=== PATIENT | female | born 1975 | race Caucasian/White ===

== ENCOUNTER → 2017-04-03 | Outpatient (CLI) | payer BC, OTHER ==
[~2017-04-03] MED LIST: ALLERGY10 M1 PO; CHANTIX1 EACH PO; CRESTOR20 MG PO; CYMBALTA60 MG PO; EFFEXOR XR75 MG PO; ERGOCALCIF50000 UNIT PO; FLEXERIL PO; HYDROCODONE-AP1 EAC6 PO; IBUPROFEN 600600 M1 PO; LYRICA 75 MG CA75 MG PO; NORCO 5-325 TA1 EACH PO; RELISTOR150 MG PO; VENLAFAXINE HC225 MG PO; XANAX 0.5 MG0.5 M1 PO
== END ==
LOC: MRI 03-10 11:19 → EDSTATUS 03-10 11:19 → MRI 03-10 13:08
DX: M54.16 Radiculopathy, lumbar region (principal); M47.896 Other spondylosis, lumbar region; M51.37 Other intervertebral disc degeneration, lumbosacral region

== ENCOUNTER → 2017-04-09 | Outpatient (CLI) | payer BC, OTHER ==
[~2017-04-09] VITALS: Ht 152.4 cm; Wt 77.2 kg
--- NOTE | ~2017-04-09 | HPC ---
[facility] [address] [place] [address] PAIN MANAGEMENT CONSULTATION Name: BA CARTER Room #: REG GISELA Choi.#: [id number] Admission: 04/09/17 Attend Phys: Geo Peters DO Discharge: Date of : 75 Report #: [id number] THIS REPORT FOR: //name// CC: Brenda Peters The patient is a 41-year-old female, seen in consultation 02/19/2017, for symptomatic lumbar radiculopathy, requiring high risk complex medication management. The patient presented to our pain clinic noting she had multiple epidural injections (6 or [address] Armendariz), all with transient improvement of symptoms. Last injection had been in January 2017. She presented to our pain clinic for medication management and discussion about ongoing therapeutic options. I continued the patient on hydrocodone 5/325 up to 4 times a day, talked about neurosurgical consultation for possible definitive surgical intervention. Spinal cord stimulator if no surgery was indicated. Ultimately pointed out that we would want to wean off of short-acting opiates for chronic pain with no definitive etiology in this 41-year-old female. The patient returns to pain clinic today noting the pain continues to be problematic, she rates the pain a 6 on a VAS, primarily pain in the low back, left buttock and leg. She states left leg goes numb at least once a day. She denies myelopathic symptoms, no saddle anesthesia nor bowel or bladder continence changes. She has been taking hydrocodone 4 a day. She has an appointment to see her neurosurgeon (Dr. Edward Randall 04/24/2017). We repeated her MRI given ongoing symptoms. I reviewed the 04/03/2017 imaging, L5-S1 does show a very minimal asymmetric left broad-based disk bulge, it does not cause central nor neural foraminal narrowing. L4-L5 shows slight ligamentum flavum hypertrophy with mild to moderate bilateral facet degenerative changes. There is some facet degenerative changes at L3-L4 as well. PHYSICAL EXAMINATION: Again, shows a 41-year-old female, BMI is 33.2 kg/m2. Subjective pain score 6 on a VAS. Blood pressure 114/75, pulse 85, and respirations 16. Rises from chair using armrest. Gait is tandem. She can walk on her toes and heels. Lumbar flexion is good to about 80 degrees. Diffuse low back tenderness. No discrete trigger points are noted. Lower extremity strength is symmetric at 4/5 to all muscle groups tested. Patellar and Achilles reflexes are preserved. Straight leg raise negative. ASSESSMENT: 1. Symptomatic lumbar radiculopathy with clinical exam and history, the patient with nominal findings at this time, relatively unremarkable MRI. Subjective paresthesia and pain in the low back and left leg. 2. Symptomatic lumbar radiculopathy, neuropathic pain requiring high complex medication management. [address] [address] PAIN MANAGEMENT CONSULTATION Name: BA CARTER Room #: REG GISELA Walker#: [id number] Admission: 04/09/17 Attend Phys: Geo Peters DO Discharge: Date of : 75 Report #: [id number] RECOMMENDATION: 1. Discussed therapeutic options with the patient today. We did get a buccal drug swab today. It should be positive for hydrocodone alone as the sole opiate. I talked about weaning opiates over time. We have elected to decrease hydrocodone 5/325 from 4 a day down to 2-3 a day. Increase ibuprofen 600 mg from 2 a day to 4 a day (at least one 3 times a day with meals plus minus bedtime ibuprofen if needed). 2. Did encourage the patient to follow through with neurosurgical consult. Unless I see something different on the MRI, I suspect she may not be a surgical candidate. They may want to consider ordering EMG of the lower extremity to evaluate etiology of the patient's subjective paresthesia. She may have a lumbar plexopathy. 3. The patient was seen for a prolonged visit today, greater than 25 minutes was spent counseling the patient. We elected to start to wean hydrocodone as noted above, I did generate a prescription for hydrocodone 5/325, limit 75 tablets, directions one tablet 2-3 times a day. 4. Increase ibuprofen 600 mg to 3 a day with possible fourth at bedtime. 5. Follow up with neurosurgery as noted above. Follow up in 1 month to reevaluate the patient continue opiate wean and evaluate neurosurgical consult and possibly EMG results. <ELECTRONICALLY SIGNED> By: Geo Peters DO 04/10/17 0810 1213 1256 Geo Peters DO /nt
[2017-04-09 11:15] VITALS: BP 114/75
== END ==
LOC: PAIN 06:26
DX: M54.16 Radiculopathy, lumbar region (principal); Z79.899 Other long term (current) drug therapy

== ENCOUNTER → 2017-05-07 | Outpatient (CLI) | payer BC, OTHER ==
[~2017-05-07] VITALS: Ht 152.4 cm; Wt 77.7 kg
--- NOTE | ~2017-05-07 | HPC ---
[facility] [place] [address] PAIN MANAGEMENT CONSULTATION Name: CARTERBA Room #: REG [facility] MPrincess.#: [id number] Admission: 05/07/17 Attend Phys: Geo Peters DO Discharge: Date of : 75 Report #: [id number] THIS REPORT FOR: //name// CC: Brenda Peters The patient is a 41-year-old female, prior seen in pain clinic 04/09/2017, diagnosed with symptomatic lumbar radiculopathy by clinical exam and history. Relatively unremarkable MRI, but subjective paresthesia in the low back and left leg. We did get a buccal swab at that time, was positive for hydrocodone as expected. Also, positive for nicotine, the patient was counseled regarding nicotine use. Continued the patient on hydrocodone 5/325, trying to wean dose down from q.i.d. Continued ibuprofen 600 mg up to 4 a day. I referred the patient to Neurosurgery. The patient returns to pain clinic today. I had ordered an EMG. It is actually scheduled now for 05/22/2017. We reviewed x-rays of the hip Dr. Randall had ordered. By report, those were unremarkable. States that her left leg has given out when she was rising up from kneeling. PHYSICAL EXAMINATION: Otherwise shows 41-year-old female, BMI is 33.4 kilograms per meter squared. No history of arthritis. Vital signs are stable as noted in the EMR. The pain tends to be only 3 on VAS, however, paresthesia, numbness in that leg. She did fall in December. She feels like it "gives out," but she has not fallen in last 3 months. We reviewed her opiate consent to treat contract. Functional assessment tool score is 61/70. Again, counseled regarding smoking cessation. Moderately antalgic gait, though lower extremity strength is only nominally diminished. She has subjective paresthesia and weakness episodically in the left leg. ASSESSMENT: Symptomatic lumbar radiculopathy, clinical exam and history. MRI fairly unremarkable. RECOMMENDATION: EMG and Neurosurgery, we will continue hydrocodone 5/325, limit 50 tablets for 30 days. Continue ibuprofen 600 mg up to 4 times a day. Follow up after EMG and Neurosurgery. Consider epidural injection if indicated. Clinically, may consider transforaminal approach. Discharged in good and stable condition. <ELECTRONICALLY SIGNED> By: Geo Peters DO 05/11/17 0715 1144 1413 Geo Peters DO /nt
[2017-05-07 14:42] VITALS: BP 113/69
== END ==
LOC: PAIN 06:54
DX: M54.16 Radiculopathy, lumbar region (principal)

== ENCOUNTER → 2017-06-05 | Outpatient (CLI) | payer BC, OTHER ==
[~2017-06-05] VITALS: Ht 152.4 cm; Wt 78.0 kg
[~2017-06-05] MED LIST changes: -CHANTIX1 EACH PO; -CYMBALTA60 MG PO; -EFFEXOR XR75 MG PO; -ERGOCALCIF50000 UNIT PO; -NORCO 5-325 TA1 EACH PO
--- NOTE | ~2017-06-05 | HPC ---
[facility] [place] [address] PAIN MANAGEMENT CONSULTATION Name: CARTERBA Room #: REG GISELA Choi.#: [id number] Admission: 06/05/17 Attend Phys: Geo Peters DO Discharge: Date of : 75 Report #: [id number] THIS REPORT FOR: //name// CC: Brenda Peters DATE OF SERVICE: 06/05/2017 The patient is a 41-year-old female, prior seen in the Pain Clinic 05/07/2017. MRI had been accomplished 04/03/2017. It did show L5-S1 to have a fairly broad base asymmetric to the left disk bulging with slight ligamentum flavum hypertrophy at L4-L5 with little facet degenerative changes at L3-L4. With ongoing lumbar radicular pain, paresthesia in the back and left leg, we recommended an EMG. Unfortunately, EMG was obtained, but I do not have the results. By verbal report, patient states that it did show some chronic left L5 compromise. This would go along with the mild MRI findings and left hip and groin pain. She did see [facility] Neurosurgery. She does have a followup appointment with her to see Orthopedics to evaluate for any left hip pathology. The patient currently notes pain is a 6 on a VAS. Pain is aching, sharp, with some numbness and tingling in the leg, exacerbated with standing or sitting too long or doing any exercise. PHYSICAL EXAMINATION: Shows a 41-year-old female, BMI is 33.6 kg/m2, blood pressure 118/86, pulse 84, respirations are 16. Rises from chair using armrest, slightly antalgic gait. Patellar and Achilles reflexes are preserved at 2/4. Trace positive straight leg raise on the left. Lower extremity strength, however, is generally symmetric about 4/5 with the exception that she has slight decreased left lower extremity flexion strength. Skin: Integument is intact. Random drug screen accomplished 04/09/2017 was positive for prescribed medications. ASSESSMENT: Lumbar radiculopathy, possible component of left hip degenerative joint disease, requiring complex medication management. RECOMMENDATION: Ultimately, we elected to continue hydrocodone . I have taken the liberty of writing for 50 tablets. Follow up after Orthopedics. We may consider epidural injection under fluoroscopy or referral back to [address] [address] PAIN MANAGEMENT CONSULTATION Name: BA CARTER Room #: REG CLJono Walker#: [id number] Admission: 06/05/17 Attend Phys: Geo Peters DO Discharge: Date of : 75 Report #: [id number] Neurosurgery for further evaluation. We will plan on weaning opiates as able. Discharged in good and stable condition. <ELECTRONICALLY SIGNED> By: Geo Peters DO 06/08/17 0925 1227 Geo Peters DO /nt
[2017-06-05 11:10] VITALS: BP 118/86
== END ==
LOC: PAIN 07:00
DX: M54.16 Radiculopathy, lumbar region (principal); Z79.899 Other long term (current) drug therapy

== ENCOUNTER → 2017-07-06 | Outpatient (CLI) | payer BC, OTHER ==
[~2017-07-06] VITALS: Ht 152.4 cm; Wt 80.3 kg
[~2017-07-06] MED LIST changes: +EFFEXOR XR75 MG PO
--- NOTE | ~2017-07-06 | HPC ---
[facility] [place] [address] PAIN MANAGEMENT CONSULTATION Name: CARTERBA Room #: REG GISELA MPrincess.#: [id number] Admission: 07/06/17 Attend Phys: Geo Peters DO Discharge: Date of : 75 Report #: [id number] THIS REPORT FOR: //name// CC: Brenda Peters DATE OF SERVICE: 07/06/2017 HISTORY OF PRESENT ILLNESS: The patient is a 41-year-old female being treated for left hip pain, lumbar radicular component. Last seen on 06/05/2017. We continued the patient on some low dose hydrocodone 5/325, I wrote for 50 tablets, referred to Orthopedics. She had prior been seen by Neurosurgery (Dr. Edward Randall). He felt that her primary pain with hip pathology. Apparently, x-rays have been fairly unremarkable. EMG did show some chronic left compromise. MRI does note asymmetric left-sided broad-based disk. She has an appointment to see Orthopedic Surgery early next month. In the interval, we have elected to continue hydrocodone 5/325 on a somewhat p.r.n. basis. Given the pain in the left lateral thigh and leg, exacerbated with standing and walking, associated with some numbness and tingling, I still feel there may be a component of left L5 radiculopathy. After she completes orthopedic workup (I believed she has seen Dr. Bazzi for diagnostic left hip joint injection), we would like to move forward with left L5-S1 transforaminal epidural injection to help with radicular component of pain. Discharged in good and stable condition with renewal of hydrocodone 5/325, dispensed 60 tablets, 1 or 2 a day. Random drug screen on 04/09/2017 was positive for prescribed medications. By: [id number] Geo Peters, /nt
[2017-07-06 14:34] VITALS: BP 118/79
== END ==
LOC: PAIN 07:25
DX: M54.16 Radiculopathy, lumbar region (principal); M25.552 Pain in left hip

== ENCOUNTER → 2017-08-17 | Outpatient (CLI) | payer BC, OTHER ==
[~2017-08-17] VITALS: Ht 152.4 cm; Wt 82.3 kg
[~2017-08-17] MED LIST changes: +CYMBALTA60 MG PO
--- NOTE | ~2017-08-17 | HPC ---
[facility] [place] [address] PAIN MANAGEMENT CONSULTATION Name: CARTERBA Room #: REG Jono MPrincess.#: [id number] Admission: 08/17/17 Attend Phys: Geo Peters DO Discharge: Date of : 75 Report #: [id number] THIS REPORT FOR: //name// CC: Brenda Peters The patient is a 41-year-old female, prior seen in the pain clinic 08/06/2017. She has symptomatic lumbar radiculopathy and left hip pain. She has been on Cymbalta 30 mg, recently increased to 60 mg by her general practitioner. This has afforded some efficacy. Lyrica 75 mg b.i.d. She has ongoing pain, low back, left buttock and hip and leg. Prior MRI had noted some compromise with facet degenerative changes. The patient did bring with her today the EMG, which had been accomplished, it did find a mild chronic left L5 radiculopathy. The patient has an appointment to see Dr. Bazzi on September 05, about 3 weeks from now to get a left flexor ultrasound-guided injection. She is very desirous of getting "to the bottom of the source of her pain" rather than simply mitigate symptoms. PHYSICAL EXAMINATION: Today does show a pleasant 41-year-old female. Subjective pain score is 5 on a VAS. BMI is 35.4 kg/m2. Blood pressure 110/70, pulse 86, and respirations are 14. Rises from chair using armrest, modestly antalgic gait. Lumbar flexion is limited to about 70 degrees. She is tender across the low back, primarily in the L5-S1 area. She does have some positive neuropathic symptoms with positive neural tensioning left. Straight leg raise does exacerbate some pain. Slight decreased left plantar flexion, little toe walk on her toes on the side. ASSESSMENT: chronic left L5 radiculopathy, possible component of left hip adductor muscle generated pain. RECOMMENDATIONS: 1. Discussion with the patient today about therapeutic option, we have elected to renew her Lyrica 75 mg b.i.d., dispense 60 tablets, 5 refills. 2. Lumbar epidural injection under fluoroscopy today, left of midline L5-S1. Follow up in 4 weeks for evaluation, this will be after her appointment with Dr. Bazzi for ultrasound-guided hip flexor injection (left flexor tendon injection). She is going to see Dr. Bazzi for an ultrasound-guided left flexor injection. PROCEDURE: Lumbar epidural injection under fluoroscopy. PROCEDURE NOTE: After both written and informed consent to include risk of spinal cord damage, increased pain, weakness and dural puncture, the patient was taken to the fluoroscopy suite, placed in the prone position. After sterile prep and drape, a skin wheal with lidocaine was raised. A 22-gauge epidural [address] [address] PAIN MANAGEMENT CONSULTATION Name: BA CARTER MANOHAR Room #: REG CLJono Walker#: [id number] Admission: 08/17/17 Attend Phys: Geo Peters DO Discharge: Date of : 75 Report #: [id number] Tuohy needle was inserted in the midline at L5-S1 with good loss to resistance. Negative aspiration for cerebrospinal fluid or blood was noted. Then 1 mL of Omnipaque under biplanar fluoroscopy showed good spread within the epidural space. This was followed with 80 mg of triamcinolone plus 1 mL of 1.5% preservative-free Xylocaine, 0.5 mL Xylocaine was then injected to flush the needle; it was removed. The patient was monitored for an appropriate period of time and discharged in good and stable condition. By: [id number] 1429 Geo Peters DO /nt
[2017-08-17 08:10] VITALS: BP 110/70
== END | disposition home or self-care (01) ==
LOC: PAIN 06:57
DX: M54.16 Radiculopathy, lumbar region (principal); G89.29 Other chronic pain; F17.210 Nicotine dependence, cigarettes, uncomplicated; Z88.8 Allergy status to other drugs, medicaments and biological substances; Z79.899 Other long term (current) drug therapy; Z79.891 Long term (current) use of opiate analgesic

== ENCOUNTER → 2017-09-21 | Outpatient (CLI) | payer BC, OTHER ==
[~2017-09-21] VITALS: Ht 157.5 cm; Wt 83.2 kg
--- NOTE | ~2017-09-21 | HPC ---
[facility] [place] [address] PAIN MANAGEMENT CONSULTATION Name: EMMABA Room #: REG Jono Choi.#: [id number] Admission: 09/21/17 Attend Phys: Geo Peters DO Discharge: Date of : 75 Report #: [id number] THIS REPORT FOR: //name// CC: Brenda Peters DATE OF SERVICE: 09/21/2017 The patient is a 41-year-old female being treated for lumbar radicular pain and left hip pain. She was seen today for prolonged visit, from 1429 to 1500. Greater than 50% of time was spent in counseling the patient. The patient was initially seen in consultation 02/19/2017. Ongoing lumbar radicular and left pain. She had 6 or [address] Armendariz, all with transient improvement of symptoms. She came to me, she was taking hydrocodone 5/325 four a day, ibuprofen 600 mg 3-4 a day and Flexeril 10 mg t.i.d. We talked about therapeutic options at that time. Given transient relief with epidural injections, I referred her to Neurosurgery for possible definitive intervention. She was seen in consultation by Dr. Florentino Darden who thought she really did not have any significant pathology that may benefit from neurosurgery. Incidentally, EMG findings from 05/22/2017 had noted mild left L5 radiculopathy. Neurosurgery thought her primary problem is coming from left hip pathology. She was referred to Orthopedics, Dr. Bazzi. Dr. Bazzi did see the patient on 09/11/2017 and did a left flexor ultrasound-guided injection. The patient notes that this afforded some relief of her groin pain, but her lumbar radicular pain continues to be problematic. Prior epidural injection by myself at last visit (midline L5-S1) afforded 2 weeks relief and pain recurred. He returns to pain clinic today noting pain continues to be problematic. She rates an 8 on a VAS. She is tearful and frustrated. BMI is 33.5 kilograms per meter squared. Blood pressure is modestly elevated at 137/94, pulse 86, respirations 16. Rises from chair using armrest. Gait is tandem. Diffuse tenderness across the low back. Straight leg raise is negative. Patellar and Achilles reflexes are preserved. Lower extremity strength is symmetric. I reviewed the EMG findings as noted above and most recent MRI (04/03/2017) showing some ligamentum flavum hypertrophy at L4-L5 and L5-S1 shows some modestly broad-based disk bulge asymmetric to the left not causing significant neural foraminal encroachment or central canal narrowing. ASSESSMENT: Symptomatic lumbar radiculopathy by clinical exam and history, left hip pain, having failed all conservative therapies. [address] [address] PAIN MANAGEMENT CONSULTATION Name: BA CARTER Room #: REG CLJono Walker#: [id number] Admission: 09/21/17 Attend Phys: Geo Peters DO Discharge: Date of : 75 Report #: [id number] RECOMMENDATIONS: After a long discussion with the patient today about therapeutic options, we have somewhat reluctantly agreed to continue hydrocodone 5/325 for a short course of time, opiate consent to treat contract was reviewed and signed. I have taken the liberty of writing for hydrocodone 5/325, limit #60 tablets. The patient takes on a nondaily basis. Continue Lyrica 75 mg b.i.d. We talked at length about spinal cord stimulator as well as possible therapeutic option. The patient understands risks, benefits and mechanism of action. We will seek authorization for spinal cord stimulator (high frequency Nevro) for left L5 radicular pain in a patient with EMG findings of chronic left L5 radiculopathy, has had short-term relief of epidural injections, is not a surgical candidate. The patient was given psychological evaluations required by most third constitution party payers. We will plan on moving forward with spinal cord stimulator at the earliest possible date. By: [id number] Geo Peters DO /nt
[2017-09-21 14:15] VITALS: BP 137/94
== END ==
LOC: PAIN 06:37
DX: M54.16 Radiculopathy, lumbar region (principal); M25.552 Pain in left hip

== ENCOUNTER → 2017-10-21 | Outpatient (CLI) | payer BC, OTHER ==
[~2017-10-21] VITALS: Ht 157.5 cm; Wt 84.2 kg
--- NOTE | ~2017-10-21 | HPC ---
[facility] [place] [address] PAIN MANAGEMENT CONSULTATION Name: BA CARTER MANOHAR Room #: REG [facility] MPrincess.#: [id number] Admission: 10/21/17 Attend Phys: Adrien Peters DO Discharge: Date of : 75 Report #: [id number] THIS REPORT FOR: //name// CC: Adrien Ya MD DATE OF SERVICE: 10/21/2017 REFERRING PHYSICIAN: Brenda Ya MD CHIEF COMPLAINT: Low back and left hip and buttock pain. HISTORY OF PRESENT ILLNESS: As you know, the patient is a 41-year-old female who returns today in followup visit for medication management. She is currently taking ibuprofen 600 mg 4 times a day and using hydrocodone 5/325 no greater than twice a day for pain control. She returns today in followup visit for refill of medications. We are continuing the process of gaining authorization for a spinal cord stimulator, process is continuing. We have yet to receive authorization to move forward, so scheduling for that will not occur at today's visit. She returns for medication management specifically. ALLERGIES: MINOCYCLINE. CURRENT MEDICATIONS: Hydrocodone, duloxetine, ibuprofen, cetirizine, cyclobenzaprine, alprazolam, and lovastatin. SOCIAL HISTORY: The patient reports herself as a smoker 1 pack tobacco per day and has done so for 26 years. Denies any alcohol, IV or illicit drug use. She works as an intermediate accountant. She is not receiving workmen's compensation, unaccompanied today. IMAGING: No new imaging available. PHYSICAL EXAMINATION: VITAL SIGNS: Blood pressure 123/84, pulse 84, respiratory rate 16 and unlabored, the patient is 96% on room air, height 5 feet 2 inches tall, weight 185.6 pounds, and BMI calculated 33.9. GENERAL: Well-developed, well-nourished, well-hydrated, exogenously obese 41-year-old female, appearing her stated age, placing current pain score at 4/10. HEENT: Normocephalic, atraumatic. Pupils are equal, round, and reactive to light. EXTREMITIES: Show no clubbing, no cyanosis, and no edema. MUSCULOSKELETAL: Seated straight leg raising negative. Supine straight leg raising mildly positive. Patricia's test positive left, negative right. [facility] [address] [place] [address] PAIN MANAGEMENT CONSULTATION Name: EMMABA MANOHAR Room #: REG [facility] Aaron#: [id number] Admission: 10/21/17 Attend Phys: Adrien Peters DO Discharge: Date of : 75 Report #: [id number] Gaenslen's positive for axial low back pain. ASSESSMENT: 1. Lumbar radiculopathy. 2. Left hip pain. 3. Chronic intractable pain. PLAN: 1. The patient returns today in followup visit for medication management. She has been treated by my partner, Dr. Geo Peters for some time for ongoing lumbar radicular symptoms. She underwent epidural injection at last visit with some improvement in symptoms. She returns requesting refill on medications, ibuprofen and hydrocodone specifically. 2. The patient was provided a prescription of hydrocodone 5/325 one tab every 12 hours p.r.n. for pain, #60, no refills, one month worth of medication. 3. The patient was provided a prescription of ibuprofen 600 mg dose 1 tab p.o. q.i.d., #120, one refill. 4. We will continue the process of prior authorization to gain approval to move forward with a spinal cord stimulator trial. This was initially attempted by my partner, Dr. Geo Peters, we will continue the process. Once it has been approved, we will have the patient return to undergo the trial. If this is successful, move forward with permanent implant. We will contact the patient once we have achieved the authorization and begin scheduling the trial implantation for lumbar radiculopathy. By: [id number] Adrien Peters DO /nt
[2017-10-21 08:10] VITALS: BP 123/84
== END ==
LOC: PAIN 05:41
DX: M54.16 Radiculopathy, lumbar region (principal); M25.551 Pain in right hip; G89.4 Chronic pain syndrome; Z79.899 Other long term (current) drug therapy

== ENCOUNTER → 2018-02-02 | Outpatient (CLI) | payer BC, OTHER ==
[~2018-02-02] VITALS: Ht 157.5 cm; Wt 84.9 kg
[~2018-02-02] MED LIST changes: +CHANTIX1 EACH PO; +ERGOCALCIF50000 UNIT PO; +NORCO 5-325 TA1 EACH PO
--- NOTE | ~2018-02-02 | HPC ---
[facility] [address] [place] [address] PAIN MANAGEMENT CONSULTATION Name: BA CARTER MANOHAR Room #: REG Jono Choi.#: [id number] Admission: 02/02/18 Attend Phys: Violette Harrington Discharge: Date of : 75 Report #: [id number] THIS REPORT FOR: //name// CC: Violette Ya MD DATE OF SERVICE: 02/02/2018 CHIEF COMPLAINT: Low back pain, left hip and buttock pain. HISTORY OF PRESENT ILLNESS: The patient is a 42-year-old pleasant female who returns today for followup for her medication management while she is awaiting her spinal cord stimulator implantation. The patient had been seen by Dr. Edward Randall for a consultation for implant of a spinal cord stimulator paddle leads. There was some confusion regarding if he was doing the surgery or not, so he referred her to Dr. Amin. Dr. Amin has now seen the patient in consultation, has ordered a thoracic MRI, which was done yesterday and the patient will be scheduled soon with Dr. Amin for her implantation. The patient is anxiously awaiting this since her successful trial was more than a month ago. The patient was hopeful to have weaned off her hydrocodone after her surgery, but since the surgery has not taken place she continues to take 1-2 hydrocodone 5/325 daily along with some ibuprofen 600 mg up to 4 a day for her back pain and hip pain that radiates to her knee. The patient tells me that they are very helpful in relieving her pain in this waiting period. She tells me that she has achy, sharp, tingly numbness pain, especially if she stands too long or sits too long. She denies constipation or daytime somnolence with these medicines. ALLERGIES: THE PATIENT HAS ALLERGIES TO MINOCYCLINE. MEDICATIONS: Hydrocodone 5/325 up to 2 a day, Drisdol 5000 units weekly, ibuprofen 600 four times a day, Cymbalta 60 mg once a day, allergy medicine, Flexeril 10 mg as needed, Xanax 0.5 per day and Crestor 20 mg once a day. The patient's PQRS: 1. History of osteoarthritis in her hip, back and knee in her lower extremities. Denies rheumatoid arthritis. 2. Height is 5 feet 2 inches, weight 187. BMI is 34.2. 3. Vital signs: Blood pressure is 133/86, pulse is 91, respirations 16, oxygen level is 100%. 4. Pain score today is 6/10. 5. Fall risk. Denies dizziness. Denies needing help walking or standing and has not fallen in the last 3 months. 6. Does not take any blood thinners. 7. No history of hypertension. [facility] [address] [place] [address] PAIN MANAGEMENT CONSULTATION Name: BA CARTER MANOHAR Room #: REG CLI Aaron#: [id number] Admission: 02/02/18 Attend Phys: Violette Harrington Discharge: Date of : 75 Report #: [id number] 8. Opioid therapy greater than 6 weeks, but does not have an opioid signed contract on the chart. 9. Risk assessment tool is moderate and her functional assessment is 44/70. 10. Recreational drug use: The patient denies. She does currently smoke cigarettes every day and she does not drink any alcohol. We have checked the [place] and [place] PDMP, which finds it appropriate for her refill of her hydrocodone from Dr. Peters and no further narcotics. She does have her Xanax prescribed from her appropriate physician, so no apparent behaviors and the patient tells me that she safeguards her medicines. IMPRESSION: 1. Lumbar radiculopathy. 2. Left hip pain. 3. Chronic intractable pain. We reviewed the fact that opiate medications are being used to provide analgesia adequate to support activities of daily living, not attempting to achieve a specific pain score on the 0-10 Visual Analog Scale. The current opiate medications are providing sufficient analgesia to allow the patient to participate in activities of daily living. The patient is not exhibiting any aberrant behavior suggestive of drug diversion. The patient is not having any adverse reactions to medications. The patient is not suffering from daytime somnolence or mental acuity changes. The patient is managing opiate-induced constipation with appropriate ryze-lbz-uigbptv agents and dietary considerations. The patient was counseled on concern for caution with operating a motor vehicle while using opiate medications. A physical exam was performed and the patient's functional status was evaluated. All patients with back pain were advised against the bed rest greater than 4 days and were advised to return to normal activities. Pain score assessment was noted and the treatment plan was reviewed with the patient. All current medications, both prescribed and OTC were reviewed and reconciled on the electronic medical record. Tobacco screening was accomplished and smoking cessation was advised when indicated. BMI was noted and diet/exercise modification was recommended for all patients following outside normal parameters. I reviewed with the patient today their responsibilities to safeguard prescription medications, reviewed their responsibility to utilize medications only as prescribed by the physician. They are to seek and receive pain medications only from 1 physician group ([facility]). They are to use 1 pharmacy and keep the clinic informed if they change pharmacies. Their responsibilities include making followup visits in a timely fashion and to avoid abrupt discontinuation of medication usage. Their responsibilities further include bringing their medications (bottles from the pharmacy with residual [facility] [address] [place] [address] PAIN MANAGEMENT CONSULTATION Name: BA CARTER Room #: REG Joon M.R.#: [id number] Admission: 02/02/18 Attend Phys: Violette Harrington Discharge: Date of : 75 Report #: [id number] pills) to the visit for possible confirmation of pill counts and the patient understands it is their responsibility to submit to random drug screens to ensure both that the medications prescribed are present, and that no other controlled substances are present. All prescriptions provided today were generated electronically. PLAN: 1. The patient returns today for medication management. She is anxiously waiting for her implantation of her Nevro spinal cord stimulator device hopefully within the next few weeks by Dr. Amin. In the meantime, she has continued to take her hydrocodone 1-2 tablets a day and her ibuprofen. 2. A prescription was given for hydrocodone 5/325, #60, with no additional refills or scripts. Second medicine ibuprofen 600 mg 1 tablet 4 times a day with one additional refill. 3. The patient's plan after her spinal cord stimulator surgery is to decrease her hydrocodone use to wean off of that. The patient is hopeful that she is able to have this all accomplished before the holidays. 4. The patient will return as followup visit as needed to our clinic. Hopefully, the procedure is successful and she is able to decrease her medicines and have good function and reduction in her pain score. 5. The patient is seen in collaboration with Dr. Adrien Peters today. <ELECTRONICALLY SIGNED> By: Violette Harrington 02/03/18 0904 [id number] [id number] Violette Harrington /nt
[2018-02-02 13:10] VITALS: BP 133/86
== END ==
LOC: PAIN 07:27
DX: M54.16 Radiculopathy, lumbar region (principal); M25.552 Pain in left hip; G89.4 Chronic pain syndrome

== ENCOUNTER → 2018-03-03 | Outpatient (CLI) | payer BC, OTHER ==
[~2018-03-03] VITALS: Ht 157.5 cm; Wt 84.8 kg
--- NOTE | ~2018-03-03 | HPC ---
[facility] [address] [place] [address] PAIN MANAGEMENT CONSULTATION Name: BA CARTER MANOHAR Room #: REG Jono Choi.#: [id number] Admission: 03/03/18 Attend Phys: Violette Harrington Discharge: Date of : 75 Report #: [id number] THIS REPORT FOR: //name// CC: Violette Ya MD DATE OF SERVICE: 03/03/2018 CHIEF COMPLAINT: Low back pain, left hip pain and buttock pain, left leg pain. HISTORY OF PRESENT ILLNESS: This is a very pleasant 42-year-old here today for refill of her medication management while she is awaiting her spinal cord stimulator implant. She has a date of 03/17/2018 for her permanent implant with Dr. Amin. She has been currently taking hydrocodone 2 tablets a day while awaiting this implant. The patient plans to wean off of her hydrocodone after the implant and is here for a medication refill to get her through this process in the next month. The patient tells me that she does have pain score of 7/10 today, worse with standing too long, sitting too long, walking on uneven ground. The medications does help. She feels sometimes that it is not lasting as long as it used to. She is very anxious to get her spinal cord stimulator placed. She does complain of achy, sharp, numbness, tingling in her back, left leg and left hip. The patient denies constipation. She says that she occasionally will have an issue, but she handles it with diet and no medications. Does not have any daytime sleepiness ALLERGIES: The patient has allergy to MINOCYCLINE. MEDICATIONS: Current list of medications hydrocodone 5/325 one tablet twice a day, ibuprofen 600 mg twice a day, Drisdol 5000 units weekly, Cymbalta 60 mg daily, Cat 10 mg daily, Flexeril 10 mg as needed, Xanax 0.5 daily and Crestor 20 mg daily. PQRS: 1. She has a history of osteoarthritis in her hip, knee, back and lower extremities. She denies rheumatoid arthritis. 2. The patient's height is 5 feet 2 inches, weight is 187. BMI is 34.2. 3. Vital signs: Blood pressure 108/77, pulse is 84, respirations 14, oxygen sat is 97%. 4. Pain score is 7/10 today. 5. Fall risk: She denies dizziness. Does not need help walking or standing and has not fallen in the last 3 months. 6. The patient is not on any blood thinners and does not take antihypertensive medicines. 7. The patient has been on opioid therapy greater than 6 weeks and does have an opioid signed agreement on the chart. [address] [address] PAIN MANAGEMENT CONSULTATION Name: BA CARTER Room #: REG GISELA Walker#: [id number] Admission: 03/03/18 Attend Phys: Violette Harrington Discharge: Date of : 75 Report #: [id number] 8. Risk assessment tool is moderate and her functional assessment is 44/70. 9. The patient denies recreational drug use. Does smoke some cigarettes every day and does not drink alcohol. We did check that [facility] prescription monitoring system. The patient is filling appropriately her hydrocodone from only Dr. Adrien Peters. PHYSICAL EXAMINATION: GENERAL: This is a well-developed, well-nourished, well-hydrated exogenous obese 42-year-old female that appears her stated age, placing her current pain score today of 7/10. HEENT: Normocephalic, atraumatic. Pupils equal, round and reactive to light. EXTREMITIES: No clubbing, no cyanosis, no edema. MUSCULOSKELETAL: Seated straight leg raising is negative. The patient rises from sitting to standing without difficulty. Does have antalgic gait, has low back, axial back pain. IMPRESSION: 1. Lumbar radiculopathy. 2. Left hip pain. 3. Chronic intractable back pain. We reviewed the fact that opiate medications are being used to provide analgesia adequate to support activities of daily living, not attempting to achieve a specific pain score on the 0-10 Visual Analog Scale. The current opiate medications are providing sufficient analgesia to allow the patient to participate in activities of daily living. The patient is not exhibiting any aberrant behavior suggestive of drug diversion. The patient is not having any adverse reactions to medications. The patient is not suffering from daytime somnolence or mental acuity changes. The patient is managing opiate-induced constipation with appropriate ywon-doe-gjouiag agents and dietary considerations. The patient was counseled on concern for caution with operating a motor vehicle while using opiate medications. A physical exam was performed and the patient's functional status was evaluated. All patients with back pain were advised against the bed rest greater than 4 days and were advised to return to normal activities. Pain score assessment was noted and the treatment plan was reviewed with the patient. All current medications, both prescribed and OTC were reviewed and reconciled on the electronic medical record. Tobacco screening was accomplished and smoking cessation was advised when indicated. BMI was noted and diet/exercise modification was recommended for all patients following outside normal parameters. I reviewed with the patient today their responsibilities to safeguard prescription medications, reviewed their responsibility to utilize medications [facility] [address] [place] [address] PAIN MANAGEMENT CONSULTATION Name: BA CARTER [id number] Admission: 03/03/18 Attend Phys: Violette Harrington Discharge: Date of : 75 Report #: [id number] only as prescribed by the physician. They are to seek and receive pain medications only from 1 physician group ( [facility]). They are to use 1 pharmacy and keep the clinic informed if they change pharmacies. Their responsibilities include making followup visits in a timely fashion and to avoid abrupt discontinuation of medication usage. Their responsibilities further include bringing their medications (bottles from the pharmacy with residual pills) to the visit for possible confirmation of pill counts and the patient understands it is their responsibility to submit to random drug screens to ensure both that the medications prescribed are present, and that no other controlled substances are present. All prescriptions provided today were generated electronically. PLAN: 1. The patient returns today for medication management. She is awaiting her spinal cord stimulator by Dr. Amin of [email or web address] on 03/17/2018. She has currently been taking her hydrocodone 2 times a day and her pain has been increasing slightly, but continues ibuprofen 2 tablets a day and her hydrocodone 2 tablets a day. The patient has her appointment scheduled for the surgery on 03/17/2018 and a followup appointment on 04/01/[address] Amin. 2. We discussed in great detail about weaning off the rest of her medications once her spinal cord stimulator is implanted. It was decided today to give her hydrocodone 5/325, #75. The patient will continue 2 tablets a day until surgery and in the initial postop period. Then, she will decrease to 1 tablet a day, then if need be half a tablet and then off or if the patient feels that she can go from one tablet to off without any difficulty or side effects from withdrawal and she can just stop her medicine. The patient given 75 to help in this weaning process, so therefore she may not need to return to the clinic for further medications. The patient is agreeable with this plan of care and does understand the process. 3. The patient is not given a prescription for ibuprofen today. She was given refills on her last prescription and the patient has been taking 2 a day and will be off of it prior to surgery as instructed by her surgeon. 4. The patient was instructed that she will have device adjustments done through Dr. Amin's office. 5. We did make an appointment for her in the end of March in case we need to continue to wean more if she was unable at that time, but hopefully she will be able to cancel this appointment. The patient seen in collaboration today with Dr. Adrien Peters. <ELECTRONICALLY SIGNED> By: Violette Harrington 03/04/18 0830 0922 [id number] Violette Harrington /georgette
[2018-03-03 08:35] VITALS: BP 108/77
== END ==
LOC: PAIN 05:41
DX: M54.16 Radiculopathy, lumbar region (principal); M25.552 Pain in left hip; G89.4 Chronic pain syndrome; Z79.899 Other long term (current) drug therapy

== ENCOUNTER → 2019-03-15 | Outpatient (CLI) | payer BC, OTHER ==
[~2019-03-15] VITALS: Ht 157.5 cm; Wt 83.0 kg
[~2019-03-15] MED LIST changes: +ALEVE220 M1 PO; +CELEXA40 MG PO; +MEDROLDOSEPACK PO; +NABUMETONE 500500 M1 PO; +TYLENOL EXTRA500 MG PO
[2019-03-15 13:00] VITALS: BP 118/74
--- NOTE | 2019-03-15 13:13 | NUR ---
Pain Clinic Assessment: 1. History of Osteoarthritis: NO History of Rheumatoid Arthritis: NO 2. Height: 5 ft. 2 in. 157.5 cm. Weight: 183.0 lb. oz. 83.008 kg. Patient's BMI: 33.5 3. Vital Signs: BP: 118/74 Pulse: 98 Resp: 14 Temp: 02 Sat: 97 ECG Mon: 4. Pain Intensity: 8 5. Fall Risk: Dizziness: N Needs help standing or walking: N Fallen in the last 3 months: N Fall risk comments: 6. Patient on Blood Thinner: None 7. History of Hypertension: N 8. Opioid Therapy greater than 6 weeks: Y Opiate Contract Signed: 9. Risk Assessment Tool Provided: mod risk 10. Functional Assessment Tool: 11. Recreational Drug Use: Never Drug Type: Tobacco Use: Current Every Day Smoker Tobacco Type: Cigarettes Amount or Packs/day: 1 PACK How Many Years: Alcohol Use: No Frequency: Quant:
--- NOTE | 2019-04-04 10:06 | HPC ---
[facility] [address] [place] [address] PAIN MANAGEMENT CONSULTATION Name: BA CARTER MANOHAR Room #: REG GISELA Walker#: [id number] Admission: 03/15/19 Attend Phys: Adrien Peters DO Discharge: Date of : 75 Report #: [id number] THIS REPORT FOR: //name// CC: Adrien Ya MD DATE OF SERVICE: 03/15/2019 REFERRING PHYSICIAN: Brenda Ya M.D. CHIEF COMPLAINT: Back pain, left buttock and left lower extremity pain with paresthesias. HISTORY OF PRESENT ILLNESS: As you know, the patient is a 43-year-old female who has returned today in followup visit with continued left back pain, left lower extremity pain and left hip pain. She indicates pain is stabbing, constant and sharp in sensation, exacerbated with walking, changing positions, lying on her left side or touching her hip. It improves with ice and heat compresses, ibuprofen and Tylenol. She places current pain score at 8/10. The patient returns without new imaging studies for evaluation of this area. She states she had been in her normal state of health until just recently where she had recurrence of symptoms. She returns today in followup visit with what appears to be bursitis of the left greater trochanter. She has not sought evaluation through her primary care physician in regards to this issue. ALLERGIES: MINOCYCLINE. CURRENT MEDICATIONS: Tylenol Extra Strength 500 mg 3 times a day, naproxen sodium 220 mg t.i.d. p.r.n., escitalopram 40 mg per day, vitamin E 50,000 units once a week, cetirizine 10 mg per day, cyclobenzaprine 10 mg t.i.d. p.r.n., alprazolam 0.5 mg every day, lovastatin 20 mg per day. SOCIAL HISTORY: The patient denies IV or illicit drug use. Denies any chronic alcohol use. She smokes 1 pack of tobacco per day and has done so for years. She is unaccompanied at today's visit. IMAGING: No new imaging available. PHYSICAL EXAMINATION: VITAL SIGNS: Blood pressure 118/74, pulse is 98, respiratory rate 14 and unlabored. The patient is 97% on room air. Height 5 feet 2 inches tall, weight 183 pounds, BMI calculated 33.5. GENERAL: Well-developed, well-nourished, well-hydrated exogenously obese 43-year-old female appearing stated age, pain is rated around 8/10. HEENT: Normocephalic, atraumatic. Pupils equal, round, reactive to light. [address] [address] PAIN MANAGEMENT CONSULTATION Name: CARTERBA Room #: REG CL Steph.#: [id number] Admission: 03/15/19 Attend Phys: Adrien Peters DO Discharge: Date of : 75 Report #: [id number] EXTREMITIES: Show no clubbing, no cyanosis, and no edema. MUSCULOSKELETAL: There is palpatory tenderness noted over the greater trochanter on the left when compared to the right. Deep palpation in area causes intensification of pain. Patricia's test is negative. Modified Gaenslen's positive for axial low back pain. Ankle clonus negative. Babinski is negative. Seated straight leg raising negative. Supine straight leg raising negative. Gait mildly antalgic favoring left lower extremity over right. ASSESSMENT: 1. Left greater trochanteric bursitis. 2. Chronic left buttock and posterolateral thigh pain secondary to chronic radiculopathy. 3. Chronic intractable pain. PLAN: 1. The patient has returned today in followup visit with new onset of what appears to be greater trochanteric bursitis. We discussed with the patient treatment options for a trochanteric bursitis including physical therapy, stretching exercises, core strengthening. We discussed medication management utilizing an oral steroid for initial anti-inflammatory effect, followed by a consistent nonsteroidal anti-inflammatory. We discussed intra-bursal injections of the greater trochanter. We also discussed surgical options. After reviewing risks and benefits of all the proposed treatment options, the patient chose to move forward with medication management. 2. The patient will be provided a prescription of Medrol Dosepak 1 pack to be taken as directed #21 tablets. Prescription was provided to the patient in written form today. She will fill this prescription to begin the medication as quickly as possible. 3. The patient will discontinue all nonsteroidal anti-inflammatories, in place, will be utilizing nabumetone 500 mg dose 1 tab p.o. t.i.d. I have advised the patient to take the medication with meals to decrease the potential of dyspepsia. She will watch for other side effects including somnolent lower extremity edema and cardiac related issues. If she notes any side effects, discontinue immediately. She was given this prescription with no refills. 4. We did discuss the possibility of having the patient undergo intra-bursal injection, at this time, the patient wishes to delay this option. I will be available to see the patient back in followup visit if she wishes to do so. 5. We wish to thank the referring physician, Dr. Brenda Ya for the re-referral of the patient to our clinic. We will keep you apprised of response to treatment. <ELECTRONICALLY SIGNED> By: Adrien Peters DO 04/04/19 [id number] Adrien Peters DO /georgette
== END ==
LOC: PAIN 06:50
DX: M70.62 Trochanteric bursitis, left hip (principal); G89.4 Chronic pain syndrome